=== PATIENT | female | born 1985 | race Native Hawaiian/Other Pacific Islander ===

== ENCOUNTER → 2017-04-09 | Outpatient (CLI) | payer OTHER ==
--- NOTE | 2017-04-09 17:29 | XR ---
EXAMINATION TYPE: XR lumbar spine 2 or 3V DATE OF EXAM: 04/09/2017 5:21 PM COMPARISON: NONE HISTORY: Back pain TECHNIQUE: 3 views FINDINGS: There is bilateral L5 spondylolysis. There is no spondylolisthesis. Disc spaces are normal. Sacroiliac joints appear normal. IMPRESSION: Bilateral L5 spondylolysis without spondylolisthesis. No compression fracture..
== END | disposition home or self-care (01) ==
LOC: RADXRMAIN 17:09
PROVIDERS: ATTEND Family Medicine
DX: M43.06 Spondylolysis, lumbar region (principal)
CPT/HCPCS: 72100

== ENCOUNTER → 2017-04-24 | Outpatient (CLI) | payer OTHER ==
--- NOTE | 2017-04-24 15:53 | US ---
EXAMINATION TYPE: US thyroid st tissue head/neck DATE OF EXAM: 04/24/2017 COMPARISON: NONE CLINICAL HISTORY: Hyperthyroidism E05.90. GLAND SIZE: Right Lobe: 5.6 x 2.1 x 1.8 cm Overall Parenchyma: homogenous Left Lobe: 4.6 x 1.6 x 1.8 cm Overall Parenchyma: homogeneous Isthmus Thickness: 0.7 cm NODULES RIGHT: # of nodules measured on right: 0 LEFT: # of nodules measured on left: 1 1. 0.6 X 0.5 x 0.7 cm echogenic solid nodule at the lower pole with well-defined margins; . This n odule is wider than tall and shows no intranodular vascularity. No prior ISTHMUS: # of nodules measured in the isthmus: 0 Bilateral neck scanned, no evidence of lymphadenopathy. Single nodule noted left lower lobe. IMPRESSION: 1. THYROMEGALY. 2. SOLITARY 7 MM NODULE IN THE LEFT LOBE OF THE THYROID.
== END | disposition home or self-care (01) ==
LOC: RADUSWWP 14:34
PROVIDERS: ATTEND Family Medicine
DX: E01.0 Iodine-deficiency related diffuse (endemic) goiter (principal); E04.1 Nontoxic single thyroid nodule
CPT/HCPCS: 76536

== ENCOUNTER → 2018-01-18 | Outpatient (CLI) | payer MEDICAID, OTHER ==
--- NOTE | 2018-01-18 07:55 | MR ---
EXAMINATION TYPE: MR oconnor wo con DATE OF EXAM: 01/18/2018 7:02 AM COMPARISON: NONE HISTORY: Cervicalgia, LBP Multiplanar MultiSpin echo imaging of the cervical spine was performed. Comparison: none C2-C3: No evidence for degenerative disc disease. No disc bulge/herniation or protrusion. No Canal stenosis. Foramina are patent bilaterally. C3-C4: No evidence for degenerative disc disease. No disc bulge/herniation or protrusion. No Canal stenosis. Foramina are patent bilaterally. C4-C5: No evidence for degenerative disc disease. No disc bulge/herniation or protrusion. No Canal stenosis. Foramina are patent bilaterally. C5-C6: There is evidence of mild disc desiccation. Mild posterocentral disc bulge without disc hernia tion or protrusion. No central stenosis or lateral recess stenosis. Foramina are patent bilaterally. C6-C7: No evidence for degenerative disc disease. No disc bulge/herniation or protrusion. No Canal stenosis. Foramina are patent bilaterally. C7-T1: No evidence for degenerative disc disease. No disc bulge/herniation or protrusion. No Canal stenosis. Foramina are patent bilaterally. Cervical segments are intact. There is normal alignment. Cervical spinal cord is of normal signal. Craniovertebral junction relationships are within normal limits. Incidental chronic paranasal sinus itis. IMPRESSION: 1. Mild degenerative disc disease at C5-6 with mild disc bulging. Otherwise unremarkable examination. EXAMINATION TYPE: MR oconnor wo con DATE OF EXAM: 01/18/2018 7:02 AM COMPARISON: NONE HISTORY: Cervicalgia, LBP Multiplanar, MultiSpin echo imaging of the lumbar spine was performed. L1-L2: Normal disc appearance without desiccation. No herniation, protrusion or disc bulging. No ca nal stenosis is present. Foramina are patent bilaterally. L2-L3: Normal disc appearance without desiccation. No herniation, protrusion or disc bulging. No ca nal stenosis is present. Foramina are patent bilaterally. L3-L4: Normal disc appearance without desiccation. No herniation, protrusion or disc bulging. No ca nal stenosis is present. Foramina are patent bilaterally. L4-L5: Mild to moderate disc desiccation. Sterile central disc protrusion. Effacement ventral thecal sac without lateral recess stenosis or central stenosis. Foramina are patent bilaterally. L5-S1: Mild disc desiccation noted. Mild posterocentral disc bulge without disc herniation. No eviden ce for central stenosis or lateral recess stenosis. Foramina are patent. Lumbar segments are intact. No paraspinal masses are identified. Conus medullaris has a normal appe arance. Cystic structure overlies the region of the cervix and may reflect nabothian cysts. IMPRESSION: 1. Degenerative disc disease greatest at L4-5 disc protrusion noted.
== END | disposition home or self-care (01) ==
LOC: RADMRIMAIN 06:16
PROVIDERS: ATTEND Internal Medicine
DX: M51.26 Other intervertebral disc displacement, lumbar region (principal); M51.36 Other intervertebral disc degeneration, lumbar region; M50.222 Other cervical disc displacement at C5-C6 level; M50.322 Other cervical disc degeneration at C5-C6 level
CPT/HCPCS: 72141; 72148

== ENCOUNTER 2018-10-28 18:27 | Emergency (ER) | payer MEDICAID, OTHER ==
[2018-10-28 19:33] LABS: Basophils % (A) 1 %; Eosinophils # (A) 0.1 k/uL (0-0.7); Eosinophils % (A) 2 %; HCT 42.6 % (34.0-46.0); HGB 13.9 gm/dL (11.4-16.0); Lymphocytes # (A) 2.1 k/uL (1.0-4.8); Lymphocytes % (A) 30 %; MCHC 32.7 g/dL (31.0-37.0); MCV 91.7 fL (80.0-100.0); Mean Platelet Volume 8.5; Monocytes # (A) 0.2 k/uL (0-1.0); Monocytes % (A) 3 %; Neutrophils # (A) 4.6 k/uL (1.3-7.7); Neutrophils % (A) 64 %; Platelet Count 228 k/uL (150-450); RBC 4.65 m/uL (3.80-5.40); RDW 13.7 % (11.5-15.5); WBC 7.2 k/uL (3.8-10.6)
[2018-10-28 19:39] LABS: ALT 35 U/L (9-52); AST 29 U/L (14-36); Albumin 4.2 g/dL (3.5-5.0); Alkaline Phosphatase 52 U/L (38-126); Anion Gap 8 mmol/L; Blood Urea Nitrogen 7 mg/dL (7-17); Calcium 9.3 mg/dL (8.4-10.2); Carbon Dioxide 24 mmol/L (22-30); Chloride 107 mmol/L (98-107); Glucose 164 mg/dL (74-99); Potassium 3.9 mmol/L (3.5-5.1); Sodium 139 mmol/L (137-145); Total Bilirubin 0.5 mg/dL (0.2-1.3); Total Protein 7.2 g/dL (6.3-8.2)
[2018-10-28 19:53] LABS: Prothrombin Time 10.8 sec (9.0-12.0)
--- NOTE | 2018-10-28 19:59 | XR ---
EXAMINATION TYPE: XR chest 2V DATE OF EXAM: 10/28/2018 COMPARISON: 03/02/2011 HISTORY: Dizziness TECHNIQUE: Frontal and lateral views of the chest are obtained. FINDINGS: Heart and mediastinum are normal. Lungs are clear. Diaphragm is normal. Bony thorax appear s normal. IMPRESSION: Normal chest. No change.
[2018-10-28 21:14] VITALS: BP 133/91; PULSE 87; RESP 16; TEMP 98.2
[2018-10-28] MEDS ORDERED: MECLIZINE 12.5 MG TAB PO STA (21:44)
[2018-10-28 22:14] LABS: Appearance,Urine Clear (Clear); Bacteria,Urine Rare /hpf; Bilirubin,Urine Negative (Negative); Blood,Urine Negative (Negative); Color,Urine Yellow; Glucose,Urine (UA) 4+ (Negative); Ketones,Urine Trace (Negative); Leukocyte Esterase,Urine Trace (Negative); Mucus,Urine Occasional /hpf; Nitrite,Urine Negative (Negative); Protein,Urine Trace (Negative); RBC,Urine 7 /hpf (0-5); Specific Gravity,Urine 1.025 (1.001-1.035); Squamous Epithelial Cell,Urine 2 /hpf (0-4); WBC,Urine 6 /hpf (0-5)
--- NOTE | 2018-10-28 22:18 | ED ---
Dizziness HPI - General Chief Complaint: Dizziness Stated Complaint: jaw & arm pain/lightheaded Time Seen by Provider: 10/28/18 21:00 Source: patient Mode of arrival: ambulatory Limitations: no limitations - History of Present Illness Initial Comments: 33-year-old female patient presents to the emergency department today for evaluation of left jaw pain and dizziness. Patient states that symptoms started earlier this morning and persisted throughout the day. Patient states she is also having some discomfort to her right upper arm. She denies any chest pain or shortness of breath with this. Denies any history of similar symptoms. She denies any nausea, vomiting, abdominal pain, fever, or chills. Denies any dental infections. Patient does have history of elevated hemoglobin A1c but is attempting to manage with diet and weight loss. She denies any upper respiratory symptoms or ear pain. Patient denies any recent rash, shortness breath, chest pain, diarrhea, constipation, back pain, numbness, tingling, weakness, hematuria, dysuria, urinary urgency, urinary frequency, headache, visual changes, or any other complaints. - Related Data Home Medications Medication Instructions Recorded Confirmed Lisdexamfetamine Dimesylate 50 mg PO QAM 10/28/18 10/28/18 [Vyvanse] Previous Rx's Medication Instructions Recorded Meclizine [Antivert] 25 mg PO BID #10 tab 10/28/18 metFORMIN HCL [Glucophage] 500 mg PO BID #60 tab 10/28/18 Allergies Allergy/AdvReac Type Severity Reaction Status Date / Time clarithromycin [From Biaxin] AdvReac Nausea Verified 10/28/18 21:12 codeine phosphate AdvReac Nausea Verified 10/28/18 21:12 [From Tylenol-Codeine #3] Review of Systems ROS Statement: Those systems with pertinent positive or pertinent negative responses have been documented in the HPI. ROS Other: All systems not noted in ROS Statement are negative. Past Medical History Past Medical History: No Reported History Additional Past Medical History / Comment(s): Insulin-dependent gestational diabetes History of Any Multi-Drug Resistant Organisms: None Reported Past Surgical History: Adenoidectomy, Cholecystectomy, Tonsillectomy Additional Past Surgical History / Comment(s): no problems with anesthesia Past Psychological History: Anxiety Smoking Status: Former smoker Past Alcohol Use History: Occasional Past Drug Use History: None Reported General Exam Limitations: no limitations General appearance: alert, in no apparent distress, other (This is a well- developed, well-nourished adult female patient in no acute distress. Vital signs upon presentation are temperature 98.4F, pulse 113, respirations 18, blood pressure 142/97, pulse ox 100% on room air.) Eye exam: Present: normal appearance, PERRL, EOMI. Absent: scleral icterus, conjunctival injection, nystagmus, periorbital swelling Neck exam: Present: normal inspection. Absent: tenderness, meningismus, lymphadenopathy Respiratory exam: Present: normal lung sounds bilaterally. Absent: respiratory distress, wheezes, rales, rhonchi, stridor Cardiovascular Exam: Present: regular rate, normal rhythm, normal heart sounds. Absent: systolic murmur, diastolic murmur, rubs, gallop, clicks GI/Abdominal exam: Present: soft, normal bowel sounds. Absent: distended, tenderness, guarding, rebound, rigid Neurological exam: Present: alert, oriented X3, CN II-XII intact Expanded Speech: Present: fluid speech Cranial nerves: EOM's Intact: Normal, Nystagmus: Normal Motor strength exam: RUE: 5, LUE: 5, RLE: 5, LLE: 5 Psychiatric exam: Present: normal affect, normal mood Skin exam: Present: warm, dry, intact, normal color. Absent: rash Course Vital Signs 10/28/18 10/28/18 18:50 21:08 Temperature 98.4 F 98.2 F Pulse Rate 113 H 87 Respiratory 18 16 Rate Blood Pressure 142/97 133/91 O2 Sat by Pulse 100 96 Oximetry EKG Findings - EKG Comments: EKG Findings:: EKG obtained at 1911 shows normal sinus rhythm with a ventricular rate of 94, NV interval 134, QRS duration 74, QT 338, QTC 422. No evidence of ST elevation or depression. Medical Decision Making - Medical Decision Making 33-year-old female patient presented to the emergency department today for complaints of dizziness, left jaw pain, and right upper arm pain. Physical examination is unremarkable. Labs reviewed and did reveal elevated blood sugar. Patient did have trace ketones and 4+ glucose in the urine. Given these findings are some concern for dehydration as a cause for her dizziness. He is educated regarding oral rehydration methods. I did discuss given risk factors that she should follow-up with her primary care physician to discuss possible referral to cardiology. Patient also given prescription for meclizine , we did discuss elevated blood sugar, she is aware of elevated hemoglobin A1c, we discussed use of metformin is awake to decrease blood sugars in addition to diet changes. She agrees to receive prescription until she can follow-up with her primary care physician. Return parameters were discussed in detail. She verbalizes understanding and agrees with this plan. - Lab Data Result diagrams: 10/28/18 19:16 10/28/18 19:16 Lab Results 10/28/18 10/28/18 10/28/18 Range/Units 19:16 19:16 19:16 WBC 7.2 (3.8-10.6) k/uL RBC 4.65 (3.80-5.40) m/uL Hgb 13.9 (11.4-16.0) gm/dL Hct 42.6 (34.0-46.0) % MCV 91.7 (80.0-100.0) fL MCH 30.0 (25.0-35.0) pg MCHC 32.7 (31.0-37.0) g/dL RDW 13.7 (11.5-15.5) % Plt Count 228 (150-450) k/uL Neutrophils % 64 % Lymphocytes % 30 % Monocytes % 3 % Eosinophils % 2 % Basophils % 1 % Neutrophils # 4.6 (1.3-7.7) k/uL Lymphocytes # 2.1 (1.0-4.8) k/uL Monocytes # 0.2 (0-1.0) k/uL Eosinophils # 0.1 (0-0.7) k/uL Basophils # 0.0 (0-0.2) k/uL PT 10.8 (9.0-12.0) sec INR 1.0 (<1.2) Sodium 139 (137-145) mmol/L Potassium 3.9 (3.5-5.1) mmol/L Chloride 107 (98-107) mmol/L Carbon Dioxide 24 (22-30) mmol/L Anion Gap 8 mmol/L BUN 7 (7-17) mg/dL Creatinine 0.54 (0.52-1.04) mg/dL Est GFR (CKD-EPI)AfAm >90 (>60 ml/min/1.73 sqM) Est GFR (CKD-EPI)NonAf >90 (>60 ml/min/1.73 sqM) Glucose 164 H (74-99) mg/dL Calcium 9.3 (8.4-10.2) mg/dL Total Bilirubin 0.5 (0.2-1.3) mg/dL AST 29 (14-36) U/L ALT 35 (9-52) U/L Alkaline Phosphatase 52 (38-126) U/L Troponin I (0.000-0.034) ng/mL Total Protein 7.2 (6.3-8.2) g/dL Albumin 4.2 (3.5-5.0) g/dL Urine Color Urine Appearance (Clear) Urine pH (5.0-8.0) Ur Specific [place] (1.001-1.035) Urine Protein (Negative) Urine Glucose (UA) (Negative) Urine Ketones (Negative) Urine Blood (Negative) Urine Nitrite (Negative) Urine Bilirubin (Negative) Urine Urobilinogen (<2.0) mg/dL Ur Leukocyte Esterase (Negative) Urine RBC (0-5) /hpf Urine WBC (0-5) /hpf Ur Squamous Epith Cells (0-4) /hpf Urine Bacteria (None) /hpf Urine Mucus (None) /hpf 10/28/18 10/28/18 Range/Units 19:16 21:55 WBC (3.8-10.6) k/uL RBC (3.80-5.40) m/uL Hgb (11.4-16.0) gm/dL Hct (34.0-46.0) % MCV (80.0-100.0) fL MCH (25.0-35.0) pg MCHC (31.0-37.0) g/dL RDW (11.5-15.5) % Plt Count (150-450) k/uL Neutrophils % % Lymphocytes % % Monocytes % % Eosinophils % % Basophils % % Neutrophils # (1.3-7.7) k/uL Lymphocytes # (1.0-4.8) k/uL Monocytes # (0-1.0) k/uL Eosinophils # (0-0.7) k/uL Basophils # (0-0.2) k/uL PT (9.0-12.0) sec INR (<1.2) Sodium (137-145) mmol/L Potassium (3.5-5.1) mmol/L Chloride (98-107) mmol/L Carbon Dioxide (22-30) mmol/L Anion Gap mmol/L BUN (7-17) mg/dL Creatinine (0.52-1.04) mg/dL Est GFR (CKD-EPI)AfAm (>60 ml/min/1.73 sqM) Est GFR (CKD-EPI)NonAf (>60 ml/min/1.73 sqM) Glucose (74-99) mg/dL Calcium (8.4-10.2) mg/dL Total Bilirubin (0.2-1.3) mg/dL AST (14-36) U/L ALT (9-52) U/L Alkaline Phosphatase (38-126) U/L Troponin I <0.012 (0.000-0.034) ng/mL Total Protein (6.3-8.2) g/dL Albumin (3.5-5.0) g/dL Urine Color Yellow Urine Appearance Clear (Clear) Urine pH 6.0 (5.0-8.0) Ur Specific [place] 1.025 (1.001-1.035) Urine Protein Trace H (Negative) Urine Glucose (UA) 4+ H (Negative) Urine Ketones Trace H (Negative) Urine Blood Negative (Negative) Urine Nitrite Negative (Negative) Urine Bilirubin Negative (Negative) Urine Urobilinogen 2.0 (<2.0) mg/dL Ur Leukocyte Esterase Trace H (Negative) Urine RBC 7 H (0-5) /hpf Urine WBC 6 H (0-5) /hpf Ur Squamous Epith Cells 2 (0-4) /hpf Urine Bacteria Rare H (None) /hpf Urine Mucus Occasional H (None) /hpf - Radiology Data Radiology results: report reviewed, image reviewed Two-view x-ray of the chest is obtained. Heart mediastinum are normal. Lungs are clear. Diaphragm is normal. Bony thorax appears normal. Impression by Dr. Norris shows normal chest with no change. Disposition Clinical Impression: Dehydration, Dizziness, Hyperglycemia Disposition: HOME SELF-CARE Condition: Good Instructions: Dehydration (ED), Dizziness (ED) Additional Instructions: Increase fluids. Follow-up with her primary care physician for recheck in 1-2 days. Return immediately for any new, worsening, or concerning symptoms. Prescriptions: Meclizine [Antivert] 25 mg PO BID #10 tab metFORMIN HCL [Glucophage] 500 mg PO BID #60 tab Is patient prescribed a controlled substance at d/c from ED?: No Referrals: Alejandra Rodriguez MD [Primary Care Provider] - 1-2 days Time of Disposition: 22:17
== END 2018-10-28 22:35 | disposition home or self-care (01) ==
LOC: EC 18:27
DX: E86.0 Dehydration (principal); E16.2 Hypoglycemia, unspecified; R68.84 Jaw pain; M79.601 Pain in right arm; Z87.891 Personal history of nicotine dependence; Z79.899 Other long term (current) drug therapy; Z90.49 Acquired absence of other specified parts of digestive tract; Z88.1 Allergy status to other antibiotic agents; Z88.5 Allergy status to narcotic agent
CPT/HCPCS: 36415; 71046; 80053; 81001; 84484; 85025; 85610; 87086; 93005; 99284

== ENCOUNTER 2020-06-01 12:40 | Outpatient (CLI) | payer BC ==
--- NOTE | 2020-06-01 14:47 | US ---
EXAMINATION TYPE: US OB >= 14 wk fetus DATE OF EXAM: 06/01/2020 COMPARISON: None CLINICAL HISTORY: Fall on abdomen, fell today and hit left side of abdomen, no cramping, bleeding or fluid loss TECHNIQUE: OBTA GESTATIONAL AGE / DATING Physician Established: (28 weeks/2 days) EDC: 08/22/2020 Dates by LMP: LMP unknown Dates by First Scan: No previous this is first scan Dates by Current Scan: (29 weeks/6 days) EDC: 08/11/2020 SURVEY IUP: Single PLACENTA: posterior fundal PREVIA: No Previa JUAN: 19.9 cm Normal CERVICAL LENGTH (transabdominal: norm > 3.0cm): 3.6 cm BIOMETRY LIE: Transverse with head maternal R BPD: 7.5 cm 30 weeks / 2 days HC: 27.5 cm 30 weeks / 1 days AC: 25.3 cm 29 weeks / 4 days FL: 5.5 cm 29 weeks / 0 days ESTIMATED WEIGHT IN GRAMS: 1385 grams ESTIMATED WEIGHT IN LBS/OZ: 3 lbs. 1 oz. WEIGHT PERCENTAGE BASED ON ESTABLISHED DATES: 79% HC/AC: 1.1 Normal FL/AC: 22 Normal HEART RATE: 146 bpm RHYTHM: Normal MATERNAL WALL MEASUREMENT: 4.2 cm from skin to anterior uterine wall (if exam limited due to body hab itus). IMPRESSION: Single viable intrauterine corresponding to an ultrasound age 29 weeks 6 days with estimate d date of delivery by today's exam August 11, 2020, limited survey
[2020-06-01 16:22] VITALS: BP 137/83; PULSE 90; RESP 16; TEMP 98.6
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
== END 2020-06-01 15:50 | disposition home or self-care (01) ==
LOC: FBPOP 12:40
PROVIDERS: ATTEND Obstetrics & Gynecology
DX: Z36.89 Encounter for other specified antenatal screening (principal); Z3A.29 29 weeks gestation of pregnancy
CPT/HCPCS: 59025; 76805; 99213

== ENCOUNTER 2020-06-18 08:51 | Outpatient (CLI) | payer BC ==
[2020-06-18 09:29] LABS: Glucose,Whole Blood 120 mg/dL (75-99)
--- NOTE | 2020-06-18 10:37 | US ---
EXAMINATION TYPE: US OB BPP wo non-stress DATE OF EXAM: 06/18/2020 COMPARISON: Ultrasound OB 06/01/2020 CLINICAL HISTORY: decreased movement. decreased movement EXAM PERFORMED: Transabdominal (TA) BPP PARAMETERS: PRESENTATION: Vertex LIE: Longitudinal?? HEART RATE: 161 bpm RHYTHM: Normal JUAN: 13.2cm DIAPHRAGM IMAGED: yes BPP SCORIN. Breathin (1 episode of breathing of 30 second duration in 30 minutes of scanning time) 2. Movement: 2 (at least 3 discrete body movements in 30 minutes) 3. Tone: 2 (1 episode of active flexion/extension of limb) 4. JUAN: 2 (JUAN index > 5cm) TOTAL SCORE: 8 / 8 IMPRESSION: Single viable intrauterine with normal BPP score.
[2020-06-18 11:14] VITALS: BP 124/85; PULSE 79; RESP 16; TEMP 98
--- NOTE | 2020-07-05 07:53 | P.MSEPDOC ---
Presenting Problems - Arrival Data Date of Arrival on Unit: 06/18/20 Time of Arrival on Unit: 08:51 Mode of Transport: Ambulatory - Complaint OB-Reason for Admission/Chief Complaint: Decreased Movement Medical History - Information : 7 Para: 5 Term: 5 : 0 Abortions: Spontaneous or Elective: 1 Number of Living Children: 5 - Gestational Age Gestational Age by PERLA (wks/days): 30 Weeks and 5 Days - History Complications: GDM Review of Systems - Review of Systems Constitutional: No problems Breast: No problems ENT: No problems Cardiovascular: No problems Respiratory: No problems Gastrointestinal: No problems Genitourinary: No problems Musculoskeletal: No problems Neurological: No problems Skin: No problems Vital Signs - Temperature Temperature: 98 F Temperature Source: Oral - Pulse Right Brachial Pulse Rate: 79 Pulse Assessment Method: Automatic Cuff - Respirations Respiratory Rate: 16 Oxygen Delivery Method: Room Air O2 Sat by Pulse Oximetry: 98 - Blood Pressure Right Arm Blood Pressure: 124/85 Blood Pressure Mean: 98 Blood Pressure Source: Automatic Cuff Medical Screen Scoring (Pre) - Cervical Exam Dilation: Exam Deferred Effacement: Exam Deferred Membranes: Intact - Uterine Contractions Frequency: N/A Duration: N/A Intensity: N/A - Maternal Vital Signs Maternal Temperature: N/A Maternal Blood Pressure: N/A Maternal Respirations: N/A - Maternal Trauma Maternal Trauma: N/A - Assessment - Baby A Baseline FHR: 140 Heart Rate - NICHD Category: Category I (Normal) = 0 NST: Reactive Position: N/A Station: N/A - Total Score - Baby A Total Score - Baby A: 0 - Total Score - Baby B Total Score - Baby B: 0 - Total Score - Baby C Total Score - Baby C: 0 - Level of Risk - Baby A Level of Risk - Baby A: Low (0-5) - Level of Risk - Baby B Level of Risk - Baby B: Low (0-5) - Level of Risk - Baby C Level of Risk - Baby C: Low (0-5) Physician Notification (Pre) - Physician Notified Physician Notified Date: 06/18/20 Physician Notified Time: 10:56 New Order Received: Yes - Notification Comment Comment: given update on pt. Serum blood glucose of 98. Hemoglobin A1C sent. BPP 06/26. Apt set up for 06/[address] Villarreal. Orders recieved to dis charge pt to home, to educate pt to follow up with Dr Villarreal Sunday. Disposition - Disposition OB Disposition: Discharge to home Discharge Date: 06/18/20 Discharge Time: 11:07 I agree with the RN Medical Screening Exam: Yes Risk & Benefit of care provided described in d/c instruction: Yes Diagnosis: DECREASED MOVEMENTS, SECOND TRIMESTER, FETUS 1
== END 2020-06-18 11:06 | disposition home or self-care (01) ==
LOC: FBPOP 08:51
PROVIDERS: ATTEND Obstetrics & Gynecology
DX: O36.8120 Decreased fetal movements, second trimester, not applicable or unspecified (principal); Z3A.30 30 weeks gestation of pregnancy
CPT/HCPCS: 59025; 76819; 82947; 83036; 99213

== ENCOUNTER 2020-08-18 06:00 | Inpatient (IN) | payer BC ==
[2020-08-18] MEDS ORDERED: CARBOPROST TROMETHAMINE 250 MCG/ML 1 ML AMP IM PRN (06:40)
[2020-08-18] MEDS ORDERED: OXYTOCIN 10 UNIT/ML 1 ML VIAL IM PRN (06:40)
[2020-08-18] MEDS ORDERED: METHYLERGONOVINE 0.2 MG/ML 1 ML AMP IM PRN (06:40)
[2020-08-18] MEDS ORDERED: LIDOCAINE 0.5% (PF) 5 MG/ML (50 ML SDV) SQ PRN (06:40)
[2020-08-18] MEDS ORDERED: TERBUTALINE 1 MG/ML VIAL SQ PRN (06:40)
[2020-08-18] MEDS ORDERED: OXYTOCIN 30 UNITS/500 ML NS 30 UNIT in SALINE 1 500ML.BAG IV SCH (06:45)
[2020-08-18 06:57] LABS: Glucose,Whole Blood 107 mg/dL (75-99)
[2020-08-18 07:15] LABS: Basophils % (A) 0 %; Eosinophils # (A) 0.1 k/uL (0-0.7); Eosinophils % (A) 2 %; HCT 38.4 % (34.0-46.0); HGB 12.2 gm/dL (11.4-16.0); Lymphocytes # (A) 1.7 k/uL (1.0-4.8); Lymphocytes % (A) 21 %; MCH 27.8 pg (25.0-35.0); MCHC 31.9 g/dL (31.0-37.0); MCV 87.2 fL (80.0-100.0); Mean Platelet Volume 11.3; Monocytes # (A) 0.4 k/uL (0-1.0); Monocytes % (A) 5 %; Neutrophils # (A) 5.6 k/uL (1.3-7.7); Neutrophils % (A) 71 %; Platelet Count 155 k/uL (150-450); RDW 15.9 % (11.5-15.5); WBC 7.9 k/uL (3.8-10.6)
[2020-08-18] MEDS: LACTATED RINGERS 1,000 ML IV SCH ×2 (07:22→16:44)
[2020-08-18 09:30] LABS: Glucose,Whole Blood 91 mg/dL (75-99)
[2020-08-18 11:56] LABS: Glucose,Whole Blood 70 mg/dL (75-99)
[2020-08-18 13:53] LABS: Glucose,Whole Blood 76 mg/dL (75-99)
[2020-08-18] MEDS ORDERED: ROPIVACAINE 100 MG, fentaNYL (PF) 200 MCG in SODIUM CHLORIDE 0.9% 76 ML EPIDURAL ONE (14:28)
[2020-08-18 15:27] LABS: Glucose,Whole Blood 66 mg/dL (75-99)
[2020-08-18 16:43] LABS: Glucose,Whole Blood 67 mg/dL (75-99)
--- NOTE | 2020-08-18 17:38 | P.HPOB ---
History of Present Illness H&P Date: 08/18/20 Chief Complaint: induction of labor 35 year old presents at 39 weeks and 3 days for induction of labor. She has gestational diabetes A2; sugars controlled with insulin. Her cervix is 3/60/-2 and she is rico irregularly. heart tones 135 with moderate variab ility and reactive. Review of Systems All systems: negative Constitutional: Denies chills, Denies fever Eyes: denies blurred vision, denies pain Ears, nose, mouth and throat: Denies headache, Denies sore throat Cardiovascular: Denies chest pain, Denies shortness of breath Respiratory: Denies cough Gastrointestinal: Denies abdominal pain, Denies diarrhea, Denies nausea, Denies vomiting Genitourinary: Denies dysuria, Denies hematuria Musculoskeletal: Denies myalgias Integumentary: Denies pruritus, Denies rash Neurological: Denies numbness, Denies weakness Psychiatric: Denies anxiety, Denies depression Endocrine: Denies fatigue, Denies weight change Past Medical History Past Medical History: No Reported History Additional Past Medical History / Comment(s): Obstetric history: She's had 5 previous vaginal deliveries and 1 miscarriage. This is her seventh . She's had care with me since the first trimester. Blood type is O+, abs negative, rubella immune, hepatitis B-, GBS negative, HIV negative. She's been followed with [facility] with this for gestational diabetes A2: Sugars controlled on insulin. Most recent weight was on August 13 at 8 lbs. 2 oz. History of Any Multi-Drug Resistant Organisms: None Reported Past Surgical History: Adenoidectomy, Cholecystectomy, Tonsillectomy Additional Past Surgical History / Comment(s): no problems with anesthesia Past Anesthesia/Blood Transfusion Reactions: No Reported Reaction Past Psychological History: Anxiety Additional Psychological History / Comment(s): non medicated Smoking Status: Never smoker Past Alcohol Use History: None Reported Past Drug Use History: None Reported - Past Family History Mother Family Medical History: Diabetes Mellitus, Hypertension Medications and Allergies Home Medications Medication Instructions Recorded Confirmed Type Insulin Glargine [Lantus] 38 unit SQ HS 06/01/20 08/18/20 History Insulin Lispro [humaLOG Kwikpen] See Protocol SQ AC-TID 06/01/20 08/18/20 History valACYclovir HCL [Valtrex] 1 tab PO BID 08/18/20 08/18/20 History Allergies Allergy/AdvReac Type Severity Reaction Status Date / Time No Known Allergies Allergy Verified 08/18/20 06:37 Exam Osteopathic Statement: *. No significant issues noted on an osteopathic structural exam other than those noted in the History and Physical/Consult. Vital Signs Temp Pulse Resp BP Pulse Ox 08/18/20 06:51 96.9 F L 94 16 134/89 100 Intake and Output 08/18/20 08/18/20 08/18/20 06:59 14:59 22:59 Intake Total 1000 Balance 1000 Intake: IV 1000 Other: Weight 98.883 kg Heart: Regular rate and rhythm Lungs: Clear to auscultation bilaterally Abdomen: Soft, nontender Extremities: Negative Homans sign Results Result Diagrams: 08/18/20 06:50 Abnormal Lab Results - Last 24 Hours (Table) 08/18/20 08/18/20 08/18/20 Range/Units 06:50 06:55 11:53 RDW 15.9 H (11.5-15.5) % POC Glucose (mg/dL) 107 H 70 L (75-99) mg/dL 08/18/20 08/18/20 Range/Units 15:15 16:42 RDW (11.5-15.5) % POC Glucose (mg/dL) 66 L 67 L (75-99) mg/dL Assessment and Plan (1) Normal labor Current Visit: Yes Status: Acute Code(s): O80 - ENCOUNTER FOR FULL-TERM UNCOMPLICATED DELIVERY; Z37.9 - OUTCOME OF DELIVERY, UNSPECIFIED SNOMED Code(s): 22453548 (2) Gestational diabetes Current Visit: No Status: Acute Code(s): O24.419 - GESTATIONAL DIABETES MELLITUS IN , UNSP CONTROL SNOMED Code(s): 01878509 Plan: 1. Induction of labor with amniotomy and Pitocin 2. Monitor sugars hourly 3. Anticipate normal vaginal delivery
[2020-08-18 18:39] LABS: Glucose,Whole Blood 67 mg/dL (75-99)
[2020-08-18] MEDS ORDERED: SIMETHICONE 80 MG CHEWABLE PO PRN (20:04)
[2020-08-18] MEDS ORDERED: diphenhydrAMINE 50 MG CAP PO PRN (20:04)
[2020-08-18] MEDS ORDERED: BENZOCAINE/MENTHOL SPRAY 1 GM/SPRAY AEROSOL TOPICAL PRN (20:04)
[2020-08-18] MEDS ORDERED: LANOLIN CREAM 5 GM TUBE TOPICAL PRN (20:04)
[2020-08-18] MEDS ORDERED: diphenhydrAMINE 25 MG CAP PO PRN (20:04)
[2020-08-18] MEDS ORDERED: ZOLPIDEM 5 MG TAB PO PRN (20:04)
[2020-08-18] MEDS ORDERED: diphenhydrAMINE 50 MG/ML 1 ML VIAL IVP PRN ×2 (20:04)
[2020-08-18] MEDS ORDERED: ACETAMINOPHEN TAB 325 MG TAB PO PRN (20:04)
[2020-08-18] MEDS ORDERED: HYDROCORTISONE 2.5% RECTAL CREAM 30 GM TUBE RECTAL PRN (20:04)
[2020-08-18] MEDS ORDERED: OXYTOCIN 20 UNITS/1000 ML NS 1,000 ML IV SCH (20:15)
[2020-08-18] MEDS: IBUPROFEN 600 MG TAB PO PRN (21:50)
[2020-08-19] MEDS: LACTATED RINGERS 1,000 ML IV SCH (00:39)
[2020-08-19 08:17] LABS: Basophils % (A) 0 %; Eosinophils # (A) 0.1 k/uL (0-0.7); Eosinophils % (A) 1 %; HCT 33.9 % (34.0-46.0); HGB 10.9 gm/dL (11.4-16.0); Lymphocytes # (A) 1.4 k/uL (1.0-4.8); Lymphocytes % (A) 13 %; MCH 28.3 pg (25.0-35.0); MCHC 32.2 g/dL (31.0-37.0); MCV 87.7 fL (80.0-100.0); Mean Platelet Volume 10.9; Monocytes # (A) 0.4 k/uL (0-1.0); Monocytes % (A) 4 %; Neutrophils # (A) 8.7 k/uL (1.3-7.7); Neutrophils % (A) 82 %; Platelet Count 126 k/uL (150-450); RBC 3.86 m/uL (3.80-5.40); RDW 15.9 % (11.5-15.5); WBC 10.7 k/uL (3.8-10.6)
[2020-08-19] MEDS: IBUPROFEN 600 MG TAB PO PRN ×3 (08:28→20:17)
[2020-08-19] MEDS: SENNOSIDES-DOCUSATE SODIUM 1 EACH TAB PO SCH ×3 (09:34→20:16)
--- NOTE | 2020-08-19 10:09 | P.PROBDLV ---
Vaginal Delivery Note - . Vaginal Delivery Note: 35 year old presents at 39 weeks and 3 days for induction of labor. She has gestational diabetes A2; sugars controlled with insulin. Her cervix is 3/60/-2 and she is rico irregularly. heart tones 135 with moderate variability and reactive. Her blood sugars were monitored through the day and range from 66-110. Pitocin was started. She started to have some contractions and when the head was better applied at 12:33 PM amniotomy performed and clear fluid noted. She progressed to complete at 190. She pushed, and delivered a viable female infant over intact perineum under epidural anesthesia at 191. Head delivered OA, anterior shoulder delivered gentle downward guidance followed by posterior shoulder and rest of body. Nose and mouth bulb suctioned, cord, infant placed on mother's abdomen. Apgars 9, 9, weight 8 lbs. 6 oz. Placenta delivered spontaneous, intact with three-vessel cord at 191. Vagina, cervix, perineum inspected. No lacerations noted. Quantitative blood loss was 25 mL. Mother and baby in stable condition.
--- NOTE | 2020-08-19 10:10 | P.DS ---
Providers Date of admission: 08/18/20 06:18 Expected date of discharge: 08/19/20 Attending physician: Yumiko Villarreal Primary care physician: Stated None - Discharge Diagnosis(es) (1) Normal labor Current Visit: Yes Status: Resolved (2) Gestational diabetes Current Visit: No Status: Acute (3) Status post normal vaginal delivery Current Visit: Yes Status: Acute Hospital Course: Patient presented for induction of labor. She underwent a normal vaginal delivery. Her course was uncomplicated. She'll be discharged home day #1 in stable condition to follow-up with me in 6 weeks. Plan - Discharge Summary New Discharge Prescriptions: New Ibuprofen [Motrin] 600 mg PO Q6HR PRN #30 tab PRN Reason: Mild Pain Or Fever >= 100.5 No Action Insulin Lispro [humaLOG Kwikpen] See Protocol SQ AC-TID Insulin Glargine [Lantus] 38 unit SQ HS valACYclovir HCL [Valtrex] 1 tab PO BID Discharge Medication List Insulin Glargine [Lantus] 38 unit SQ HS 06/01/20 [History] Insulin Lispro [humaLOG Kwikpen] See Protocol SQ AC-TID 06/01/20 [History] valACYclovir HCL [Valtrex] 1 tab PO BID 08/18/20 [History] Ibuprofen [Motrin] 600 mg PO Q6HR PRN #30 tab 08/19/20 [Rx] Follow up Appointment(s)/Referral(s): Yumiko Villarreal DO [Doctor of Osteopathic Medicine] - 6 Weeks Discharge Disposition: HOME SELF-CARE
[2020-08-19 15:57] VITALS: BP 136/80; PULSE 90; RESP 18; TEMP 98
== END 2020-08-19 20:45 | disposition home or self-care (01) | DRG 807 ==
LOC: 4FBP 06:18
PROVIDERS: ADMIT Obstetrics & Gynecology; ATTEND Obstetrics & Gynecology
DX: O24.424 Gestational diabetes mellitus in childbirth, insulin controlled (principal); Z37.0 Single live birth; Z3A.39 39 weeks gestation of pregnancy; Z90.49 Acquired absence of other specified parts of digestive tract; Z90.89 Acquired absence of other organs; Z86.59 Personal history of other mental and behavioral disorders; Z82.49 Family history of ischemic heart disease and other diseases of the circulatory system; Z83.3 Family history of diabetes mellitus
CPT/HCPCS: 85025; 86850; 86900; 86901